=== PATIENT | female | born 1960 | race Two or more races ===

== ENCOUNTER 2018-03-10 04:46 | Inpatient (IN) | payer OTHER ==
[~2018-03-10] VITALS: Ht 162.6 cm; Wt 72.6 kg
[2018-03-10] MEDS ORDERED: COZAAR50 MG (05:02)
[2018-03-10] MEDS ORDERED: CATAFLAN (05:03)
[2018-03-10] MEDS ORDERED: PNEU16DI2 (05:03)
== END 2018-03-11 14:28 | disposition designated cancer center or children's hospital (05) | DRG 282 ==
LOC: ER 04:46 → SEC-K 12:59 → MEDI 13:37
PROC: B246ZZZ Ultrasonography of Right and Left Heart (ICD-10-PCS; principal; 2018-03-10)
PROC: 4A12X4Z Monitoring of Cardiac Electrical Activity, External Approach (ICD-10-PCS; 2018-03-10)
DX: I21.4 Non-ST elevation (NSTEMI) myocardial infarction (principal); I24.9 Acute ischemic heart disease, unspecified; I10 Essential (primary) hypertension; E78.00 Pure hypercholesterolemia, unspecified

== ENCOUNTER 2018-12-21 09:19 | Outpatient (CLI) | payer OTHER ==
[~2018-12-21 09:19] MED LIST: CATAFLAN; COZAAR50 MG; PNEU16DI2
== END 2018-12-21 09:20 | disposition home or self-care (01) ==
LOC: NUCLEAR 09:19
DX: M81.0 Age-related osteoporosis without current pathological fracture (principal)

== ENCOUNTER 2024-02-23 08:07 | Outpatient (CLI) | payer OTHER | END 2024-02-23 08:16 | disposition home or self-care (01) | LOC: MAMO-SONO 08:07 | PROVIDERS: ATTEND Internal Medicine | DX: N63.0 Unspecified lump in unspecified breast (principal); Z12.31 Encounter for screening mammogram for malignant neoplasm of breast; E04.9 Nontoxic goiter, unspecified; I10 Essential (primary) hypertension ==

== ENCOUNTER 2024-02-23 12:31 | Outpatient (CLI) | payer OTHER | END 2024-02-23 12:34 | disposition home or self-care (01) | LOC: NUCLEAR 12:31 | PROVIDERS: ATTEND Internal Medicine | DX: Z13.820 Encounter for screening for osteoporosis (principal); M81.0 Age-related osteoporosis without current pathological fracture ==

== ENCOUNTER 2024-05-10 07:40 | Outpatient (CLI) | payer OTHER | END 2024-05-10 07:46 | disposition home or self-care (01) | LOC: SONOGRAMA 07:40 | PROVIDERS: ATTEND Obstetrics & Gynecology | DX: R10.2 Pelvic and perineal pain (principal) ==

== ENCOUNTER 2024-08-24 07:55 | Emergency (ER) | payer OTHER ==
[~2024-08-24] VITALS: Ht 162.6 cm; Wt 77.1 kg
[2024-08-24] MEDS ORDERED: TOPROL XL25 M1 PO (08:04)
[2024-08-24] MEDS ORDERED: ATORVASTATIN CA10 MG PO (08:04)
[2024-08-24] MEDS ORDERED: ZETIA10 MG PO (08:05)
[2024-08-24] MEDS ORDERED: CHILDREN'S ASPI81 MG PO (08:05)
[2024-08-24] MEDS ORDERED: ACETAMINOPHEN 500 MG GEL..CAP PO STA (09:06)
[2024-08-24] MEDS ORDERED: ACETAMINOPHEN 500 MG GEL..CAP PO ONE (09:13)
[2024-08-24 09:27] LABS: HEMATOCRIT 38.6 % (36.0-45.00); HEMOGLOBIN 13.4 g/dL (12.0-15.00); MEAN CELL VOLUME 94.9 fL (80.00-100.00); MEAN CORPUSCULAR HGB CONC 34.7 g/dl (32.0-36.0); PLATELET COUNT 274 K/uL (150-450); RED BLOOD COUNT 4.06 M/uL (4.00-6.00); RED CELL DISTRIBUTION WIDTH 12.8 % (11.5-14.5)
== END 2024-08-24 10:51 | disposition home or self-care (01) ==
LOC: ER 07:57
PROVIDERS: General Practice
DX: B34.9 Viral infection, unspecified (principal); R53.81 Other malaise; Z88.0 Allergy status to penicillin

== ENCOUNTER 2024-12-27 07:46 | Emergency (ER) | payer OTHER ==
[~2024-12-27] VITALS: Ht 162.6 cm; Wt 74.8 kg
[~2024-12-27 07:46] MED LIST changes: +ATORVASTATIN CA10 MG PO; +CHILDREN'S ASPI81 MG PO; +TOPROL XL25 M1 PO; +ZETIA10 MG PO
[2024-12-27] MEDS ORDERED: BENZONATATE 200 MG CAPSULE PO ONE (08:30)
[2024-12-27] MEDS ORDERED: ACETAMINOPHEN 325 MG TABLET PO ONE (08:30)
[2024-12-27] MEDS ORDERED: CETIRIZINE HCL 5 MG/5 ML ML PO ONE (08:45)
[2024-12-27 09:15] LABS: BASO % 0.5 % (0.1-1.2); EOS # 0.34 (0.04-0.54); EOS % 2.3 % (0.7-7.0); LYMPH # 2.59 (1.18-3.74); LYMPH % 17.6 % (19.3-53.1); MEAN PLATELET VOLUME 8.90 fl (9.4-12.4); MONO # 1.21 (0.24-0.82); MONO % 8.2 % (4.7-12.5); NEUT # 10.45 (1.56-6.13); NEUT % 71.0 % (34.0-71.1); RED CELL DISTRIBUTION WIDTH 12.7 % (11.6-14.4)
[2024-12-27 10:20] LABS: COVID-19 AG POSITIVE (NEGATIVE)
[2024-12-27] MEDS ORDERED: AZITHROMYCIN500 MG PO (10:29)
[2024-12-27] MEDS ORDERED: ZYRTEC10 MG PO (10:29)
[2024-12-27] MEDS ORDERED: PEPCID AC20 MG PO (10:29)
[2024-12-27] MEDS ORDERED: BENZONATATE200 M1 PO (10:29)
== END 2024-12-27 11:02 | disposition home or self-care (01) ==
LOC: ER 09:08
PROVIDERS: General Practice
DX: U07.1 COVID-19 (principal); R51.9 Headache, unspecified; R05.8 Other specified cough; R09.81 Nasal congestion; Z88.0 Allergy status to penicillin